=== PATIENT | female | born 1980 | race Caucasian/White ===

== ENCOUNTER → 2019-08-14 16:25 | Outpatient (BNVA) | payer MEDICAID, SELFPAY | PROVIDERS: Family Provider Internal Medicine; PCP Internal Medicine; Visit Provider Obstetrics & Gynecology | DX: O02.1 Missed abortion (principal) | CPT/HCPCS: 85025 ==

== ENCOUNTER 2019-08-21 06:47 | Day surgery (SDC) | payer MEDICAID, SELFPAY ==
[2019-08-20 10:37] VITALS: BMI 32.4
--- NOTE | 2019-08-21 06:53 | P.HPUD_ITS ---
Surgery/Procedure H&P Update DATE OF PROCEDURE: August 21, 2019 DATE H&P PERFORMED: 08/19/19 H&P UPDATE INFORMATION: I have reviewed H&P completed within last 30 days, I have examined patient prior to procedure, No changes to prior documentation and H&P is in [facility] on date indicated PREOP DIAGNOSIS: Missed PRIMARY INDICATION FOR PROCEDURE: missed PLANNED PROCEDURE: Operation Date: 08/21/19 08:15 Proposed Procedures p Dilation And Curettage (D&C)(Not Applicable) - Gil Butterfield MD
[2019-08-21 07:00] VITALS: BP 108/73; PULSE 90; RESP 18; TEMP 36.3; O2SAT 99
[2019-08-21] MEDS: sodium chloride 0.9% 1,000 ML 30 ML IV (07:23)
--- NOTE | 2019-08-21 07:32 | ANES.PREANE2 ---
Pre-Anesthetic Assessment Pre-Anesthetic Assessment: Height/Weight: Height 1.68 m Weight 91.172 kg Temp Pulse Resp BP Pulse Ox 97.3 F L 90 18 108/73 99 08/21/19 07:00 08/21/19 07:00 08/21/19 07:00 08/21/19 07:00 08/21/19 07:00 Preop Diagnosis: Missed Proposed Procedure: Operation Date: 08/21/19 08:15 Proposed Procedures p Dilation And Curettage (D&C)(Not Applicable) - Gil Butterfield MD Last intake: Intake Last Liquid Date 08/20/19 Last Liquid Time 23:00 Last Solid Date 08/20/19 Last Solid Time 23:00 Social: Social History: No alcohol and No tobacco Exam: Pre-Anes Outpt Exam: alert, oriented x 3, clear to auscultation bilaterally and regular rate & rhythm Airway: Submandibular: WNL Cervical ROM: WNL MP: 1 Dentition: Other (teeth ok) History/ROS: No significant history except as noted Pulmonary: Pulmonary: None reported CV/HEM: CV/HEM: None reported : : None reported Hepatic: Hepatic: None reported GI: GI: None reported Metabolic: Metabolic: None reported Musc/skel: Musc/skel: None reported Neuropsych: Neuropsych: None reported Anesthetic Plan: ASA status: 2 Anesthesia: Anesthesia Evaluation and General Risk of > 500 ml blood loss (7ml/kg in children): No Meds/Allergies Current Medications: Current Medications Generic Name Dose Route Start Last Admin Trade Name Freq PRN Reason Stop Dose Admin Sodium Chloride 1,000 mls @ 30 ml s/hr 08/21/19 07:00 08/21/19 07:23 Sodium Chloride 0.9% IV 08/22/19 06:59 30 mls/hr .Q24H MENDOZA Administration PFSH Anesthesia PFSH: Medical History Cystic fibrosis carrier Diagnosed with her first . Report has been scanned into expanse. Migraine with aura Started having migraines in her 30s with some visual disturbances. She has never seen a neurologist and just follows up with her primary care provider. She usually takes ibuprofen and headaches resolved. Surgical History History of facial surgery (~2007) cyst on her jaw History of mandibular surgery Maxillomandibular fixation in 1996. Wiring removed the same year with another surgery Family History Family/Other Hypertension Paternal uncle Family history of thyroid problem Paternal aunt Breast cancer Paternal grandmother--dx'd in her 40s Paternal aunt--dx'd in her 40s Father Hyperlipidemia Grandmother Family history of thyroid problem Paternal grandmother Sister Family history of thyroid problem Mother Colon cancer dx'd at 56 years old Denies family history of Ovarian cancer Diabetes Heart disease Uterine cancer Stroke Social History Smoking and tobacco status: never smoked Alcohol intake: never Additional social history: - Tobacco Use: Denies past or current use Drug Use: Denies past or current use Alcohol Use: Used to drink socially; denies any alcohol use since 2013 Work/Study Status: Stay at home mother Data Anesthesia Cardiac Studies: No Data to Display
[2019-08-21 07:43] LABS: Basophils # 0.1 10^3/uL (0.0-0.1); Basophils % 0.9 %; Eosinophils # 0.2 10^3/uL (0.0-0.8); Eosinophils % 4.1 %; Hematocrit 40.1 % (37.0-47.0); Hemoglobin 13.4 g/dL (11.5-15.3); Lymphocytes % 37.4 %; Mean Corpuscular HGB Conc 33.4 g/dL (30.0-36.0); Mean Corpuscular Hemoglobin 29.6 pg (28.0-34.0); Mean Corpuscular Volume 88.7 fL (81-99); Mean Platelet Volume 10.1 fL (7.4-10.4); Monocytes # 0.3 10^3/uL (0.2-0.9); Monocytes % 4.7 %; Neutrophils # 2.8 10^3/uL (1.8-7.7); Neutrophils % 52.7 %; Nucleated Red Blood Cells % 0 %; Platelet Count 220 10^3/cmm (130-400); Red Blood Count 4.52 10^6/uL (4.1-5.3); White Blood Count 5.3 10^3/uL (4.0-10.0)
[2019-08-21] MEDS: miSOPROStol 200 mcg Tablet 600 MCG VAGINAL (09:20)
[2019-08-21 09:33] VITALS: BP 104/71; PULSE 89; RESP 16; TEMP 36.3; O2SAT 100
--- NOTE | 2019-08-21 09:34 | P.OP_ITS ---
Operative Report Date of procedure: August 21, 2019 OPERATIVE REPORT Date of surgery: 01/21/2020 Date of dictation: 01/21/2020 Preoperative diagnosis: 39-year-old 4 para 3-0-0-3, missed at 8 weeks. Postoperative diagnosis/findings: 8 to 10-week size retroverted uterus, no adnexal masses, grade 2-3 cystocele, grade 2-3 uterine prolapse, no rectocele. Procedure done: Dilation and suction curettage Specimens removed/disposition of specimens: Products of conception Surgeon: Dr. Gil Sanchez bankruptcy legal assistant: Ayala Anesthesia: General endotracheal tube anesthesia Estimated blood loss: 400 ml Intravenous fluids: 700 mL of LR Urine output: 200 mL of clear urine via red rubber catheter Medications: As per anesthesia records, 600 mcg of Cytotec and 20 units of Pitocin Complications: None, patient was extubated and taken to the recovery room in stable condition PROCEDURE: After consents were signed , the patient was taken to the operating room where she was placed under general endotracheal tube anesthesia without any difficulty. She was placed in dorsal lithotomy position and exam under anesthesia showed a 8 to 10-week size retroverted uterus without adnexal masses. She was then prepped and draped in the usual sterile fashion. Weighted speculum and lateral wall retractors were used to visualize the cervix and the anterior lip of cervix was grasped with a tenaculum. The cervix was easily dilated without any difficulty to 20 John-Roman dilator. Once this was done 9# rigid suction curette was placed into the uterus without difficulty and advanced to the fundus. The curette was attached to suction suction curettage was performed, gritty sensation was noted on all 4 conway of the uterus. The suction curet was removed and curettage was repeated with a sharp curet. All the products obtained were sent to pathology labeled as products of conception. After this was done bimanual exam showed an 8 week size uterus. As there was still active bleeding from the cervix she was given Pitocin IV and 600 mcg of Cytotec per rectum. Bimanual massage was continued and the uterus was noted to form done and was7- 8weeks in size. Bleeding was noted to be minimal. Tenaculum was removed from the cervix and no active bleeding tenaculum site. All instruments were removed from the vagina. The patient was extubated without difficulty and taken to the recovery room in a stable condition. FOLLOW UP: Follow-up in 2 weeks and 6 weeks with surgeon MEDICATION ON DISCHARGE: Colace 100 mg by mouth every 12 hours when necessary constipation, 30 tablets, no refills Ibuprofen 800 mg by mouth every 8 hours when necessary pain, 60 tablets, no refills. Cytotec 200 mcg every 6 hours - 5 tablets. Continue other home medication[default value] DISPOSITION: Home in a stable condition Pre-op Diagnosis: Missed
[2019-08-21 09:38] VITALS: PULSE 90; RESP 16; O2SAT 100
[2019-08-21 09:43] VITALS: PULSE 87; RESP 14; TEMP 36.4; O2SAT 100
[2019-08-21 10:52] VITALS: BP 105/63; PULSE 82; RESP 18; O2SAT 100
== END 2019-08-21 11:00 | disposition home or self-care (01) ==
PROVIDERS: Visit Provider Obstetrics & Gynecology
PROC: (CPT 58120; principal; 2019-08-21 08:15)
DX: O02.1 Missed abortion (principal); Z3A.08 8 weeks gestation of pregnancy; O09.521 Supervision of elderly multigravida, first trimester
CPT/HCPCS: 59820; 12345; 36415; 84702; 85025; 86850; 86900; 88305; J0330; J1100; J2001; J2405; J2590; J2704; J3010; J3490; J7030

== ENCOUNTER → 2019-10-01 15:35 | Outpatient (BNVA) | payer SELFPAY | PROVIDERS: Visit Provider Obstetrics & Gynecology | DX: Z12.4 Encounter for screening for malignant neoplasm of cervix (principal) | CPT/HCPCS: 88175 ==

== ENCOUNTER → 2019-11-13 09:37 | Outpatient (BNVA) | payer MEDICAID, SELFPAY | PROVIDERS: Visit Provider Obstetrics & Gynecology | DX: Z32.01 Encounter for pregnancy test, result positive (principal) | CPT/HCPCS: 81025 ==

== ENCOUNTER → 2019-12-22 14:37 | Outpatient (BNVA) | payer MEDICAID, SELFPAY | PROVIDERS: Visit Provider Obstetrics & Gynecology | DX: Z34.81 Encounter for supervision of other normal pregnancy, first trimester (principal) | CPT/HCPCS: 80053; 80307; 82950; 84315; 85027; 86592; 86762; 86803; 86850; 86900; 87340; 87491; 87591 ==

== ENCOUNTER → 2020-04-14 10:38 | Outpatient (BNVA) | payer MEDICAID, SELFPAY | PROVIDERS: Visit Provider Obstetrics & Gynecology | DX: Z34.81 Encounter for supervision of other normal pregnancy, first trimester (principal) | CPT/HCPCS: 82950; 84315; 85025 ==

== ENCOUNTER → 2020-06-08 11:12 | Outpatient (BNVA) | payer MEDICAID, SELFPAY | PROVIDERS: Visit Provider Obstetrics & Gynecology | DX: Z34.81 Encounter for supervision of other normal pregnancy, first trimester (principal) | CPT/HCPCS: 84315; 87081 ==

== ENCOUNTER → 2020-06-24 09:58 | Outpatient (BNVA) | payer MEDICAID, SELFPAY | PROVIDERS: Visit Provider Obstetrics & Gynecology | DX: Z34.81 Encounter for supervision of other normal pregnancy, first trimester (principal); Z20.822 Contact with and (suspected) exposure to COVID-19 | CPT/HCPCS: 87635 ==

== ENCOUNTER 2020-06-28 12:54 | Inpatient (IN) | payer MEDICAID, SELFPAY ==
[2020-06-28] VITALS (33 sets, daily range): BP systolic 115–144; BP diastolic 53–77; PULSE 60–148; RESP 16; TEMP 35.9–36.8; BMI 37.9
[2020-06-28 06:47] LABS: Basophils % 0.5 %; Eosinophils # 0.1 10^3/uL (0.0-0.8); Eosinophils % 1.2 %; Hematocrit 38.1 % (37.0-47.0); Lymphocytes # 2.3 10^3/uL (0.8-4.8); Lymphocytes % 28.1 %; Mean Corpuscular HGB Conc 34.1 g/dL (30.0-36.0); Mean Corpuscular Hemoglobin 31.1 pg (28.0-34.0); Mean Corpuscular Volume 91.1 fL (81-99); Mean Platelet Volume 10.4 fL (7.4-10.4); Monocytes # 0.5 10^3/uL (0.2-0.9); Neutrophils # 5.32 10^3/uL (1.8-7.7); Neutrophils % 63.7 %; Nucleated Red Blood Cells % 0 %; Platelet Count 174 10^3/cmm (130-400); Red Blood Count 4.18 10^6/uL (4.1-5.3); Red Cell Distribution Width 13.9 % (12.1-15.1); White Blood Count 8.3 10^3/uL (4.0-10.0)
[2020-06-28] MEDS: lactated ringers 1,000 ML 125 ML IV (06:48)
[2020-06-28] MEDS: oxytocin 30 UNIT/500 ML BAG IV (07:15)
[2020-06-28] MEDS: dextrose 5%-lactated ringers 1,000 ML 125 ML IV (11:44)
[2020-06-28] MEDS: lidocaine 2% INJ 20 mL INJECTION (12:10)
--- NOTE | 2020-06-28 12:35 | PM.DELIVERY ---
Delivery Note: Date of delivery: June 28, 2020 - PRE-DELIVERY DIAGNOSIS: 40-year-old 5 para 3-0-1-3 at 39 weeks and 4 days gestation GBS negative, Covid negative Elective induction of labor Obesity Advanced maternal age Cystic fibrosis carrier Migraine with aura POST-DELIVERY DIAGNOSIS: Vaginal delivery on 06/28/2020 PROCEDURE: Vaginal delivery on 06/28/2020 ANESTHESIA: 2% lidocaine local anesthesia DELIVERING PHYSICIAN: Gil Sanchez FACOG PRE-DELIVERY COURSE: Ms. Roldan is a 40-year-old 5 para 3-0-1-3 at 39 weeks and 4 days gestation who presented to labor and delivery on 06/28/2020 for elective induction of labor. She denied any problems and was comfortable and had irregular contractions which she did not feel. tracing was category 1 and cervical exam was 450 and -2 station. She was GBS negative and had a negative Covid test and was started on high-dose Pitocin titrated to a maximum of 12 mIU. With this she started to have regular contractions every 2 to 3 minutes and started to grow more uncomfortable. At 10 AM she was noted to be 5 to 6 cm 70% and -2 station. Artificial rupture of membranes was performed at 11:25 AM with meconium fluid. Manager Home on-call Dr. Winters was notified and aware. At this time she was noted to be 7 to 8 cm 70% and -2 station. She progressed rapidly after this and was fully dilated at 11:57 AM and set up in lithotomy ready to push. tracing was category 1 thus far. DELIVERY NOTE: She was set up in lithotomy position and was pushing effectively. She was noted to be +3 station and continued pushing well. The head delivered in KALINA position, nuchal cord x1 was present and was reduced after delivery of the head without any difficulty. The shoulders and rest of the body followed with her next push. The baby's mouth and nose were suctioned and the baby was placed on the mother's belly. Once cord pulsations stopped the cord was clamped and cut and the baby then taken to the warmer by the nurse. The placenta delivered spontaneously intact with membranes and was discarded. The fundus was noted to be firm and well contracted however the lower uterine segment was boggy despite massage and passed clots and as a result 400 mcg of Cytotec were placed per rectum after which tone improved.. The vagina and cervix were inspected and no cervical or sulcal lacerations were noted. The perineum was noted to be intact except for a first-degree vaginal tear near the urethra which was repaired in a [id number] fashion with anesthesia after injecting the area with lidocaine and obtaining anesthesia. Baby Silvano gaines born at 12:03 PM on 06/28/2020 with 7/9, weighing 9 pounds 1 ounce, 4115 g,, 21 inches long. Placenta was delivered spontaneously intact with membranes at 12:07 PM. Cotyledons were intact , centrally inserted umbilical cord with 3 vessels noted. Estimated blood loss 250 mL. Complications-none, both baby and mother were left to recover in a stable condition. This documentation was created by [employer] airconditioning engineer software (known for inherent airconditioning engineer error). Every effort was made to assure accuracy of airconditioning engineer. Any obvious errors or omissions should be clarified with the author of the document. Coding Level of Care Code Acute Film Color Tester for g Fwd History History History 5 Term 4 Miscarriages/Ectopic 1 0 Living Children 4 Other History: - X 4 SAB X 1, D&C done. 1--->[08/06/2013]Male--- Álvaro, 8lbs 3oz, 39 6/7 weeks gestation, 6 hours of labor. Anesthesia: None. Vaginal delivery. Delivered at [facility] in [place], [place]. 2--->[06/04/2015]Male--John, 8 lbs 14 ozs, 40 weeks gestation. No anesthesia. Vaginal delivery. Delivered by Dr James Ayala at [facility] in [place], [place]. No complications. 3--->[10/17/2017]Male--Deshler, 9lbs 2 oz, 40 weeks gestation. No anesthesia. Vaginal delivery by Dr. Ayala. No complications. CF carrier. 4---> 08/21/2019----missed at 8 weeks-[place] [facility] [place]. 5---> 06/28/2020---male, Silvano, 9 pounds 1 ounce at 39 weeks and 4 days-elective induction, no anesthesia, vaginal delivery [place]. Sanchez [place] [facility] [place] No complications, thin neck, intact [id number]-[id number] periurethral tear.
[2020-06-28] MEDS: miSOPROStol 200 mcg Tablet 400 MCG XX (12:39)
[2020-06-28] MEDS: ibuprofen 800 mg tablet PO ×2 (17:02→21:25)
[2020-06-28] MEDS: docusate sodium 100 mg Capsule PO (17:02)
[2020-06-29 01:02] LABS: Hematocrit 34.7 % (37.0-47.0); Hemoglobin 11.9 g/dL (11.5-15.3); Mean Corpuscular HGB Conc 34.3 g/dL (30.0-36.0); Mean Corpuscular Hemoglobin 31.2 pg (28.0-34.0); Mean Corpuscular Volume 90.8 fL (81-99); Mean Platelet Volume 10.8 fL (7.4-10.4); Platelet Count 159 10^3/cmm (130-400); Red Blood Count 3.82 10^6/uL (4.1-5.3); Red Cell Distribution Width 13.9 % (12.1-15.1); White Blood Count 10.7 10^3/uL (4.0-10.0)
[2020-06-29 01:55] VITALS: BP 120/60; PULSE 73; TEMP 36.4
[2020-06-29 01:57] VITALS: RESP 14
[2020-06-29 05:55] VITALS: BP 111/54; PULSE 74
[2020-06-29] MEDS: HYDROcodone-acetaminophen 5-325 mg Tablet PO (06:13)
--- NOTE | 2020-06-29 07:06 | PM.OBGYDC ---
Discharge Providers SIGNAL OPERATOR TECHNICAL Date of Admission: 06/28/20 12:54 Date of Discharge: 06/29/20 Attending Provider at Admission: Gil Butterfield MD Attending Provider at Discharge: Gil Butterfield MD June 29, 2020 PRE-DELIVERY DIAGNOSIS: 40-year-old 5 para 3-0-1-3 at 39 weeks and 4 days gestation GBS negative, Covid negative Elective induction of labor Obesity Advanced maternal age Cystic fibrosis carrier Migraine with aura POST-DELIVERY DIAGNOSIS: Vaginal delivery on 06/28/2020 PROCEDURE: Vaginal delivery on 06/28/2020 ANESTHESIA: 2% lidocaine local anesthesia DELIVERING PHYSICIAN: Gil Sanchez FACOG PRE-DELIVERY COURSE: Ms. Roldan is a 40-year-old 5 para 3-0-1-3 at 39 weeks and 4 days gestation who presented to labor and delivery on 06/28/2020 for elective induction of labor. She denied any problems and was comfortable and had irregular contractions which she did not feel. tracing was category 1 and cervical exam was 450 and -2 station. She was GBS negative and had a negative Covid test and was started on high-dose Pitocin titrated to a maximum of 12 mIU. With this she started to have regular contractions every 2 to 3 minutes and started to grow more uncomfortable. At 10 AM she was noted to be 5 to 6 cm 70% and -2 station. Artificial rupture of membranes was performed at 11:25 AM with meconium fluid. Hostel Parent on-call Dr. Winters was notified and aware. At this time she was noted to be 7 to 8 cm 70% and -2 station. She progressed rapidly after this and was fully dilated at 11:57 AM and set up in lithotomy ready to push. tracing was category 1 thus far. DELIVERY NOTE: She was set up in lithotomy position and was pushing effectively. She was noted to be +3 station and continued pushing well. The head delivered in KALINA position, nuchal cord x1 was present and was reduced after delivery of the head without any difficulty. The shoulders and rest of the body followed with her next push. The baby's mouth and nose were suctioned and the baby was placed on the mother's belly. Once cord pulsations stopped the cord was clamped and cut and the baby then taken to the warmer by the nurse. The placenta delivered spontaneously intact with membranes and was discarded. The fundus was noted to be firm and well contracted however the lower uterine segment was boggy despite massage and passed clots and as a result 400 mcg of Cytotec were placed per rectum after which tone improved.. The vagina and cervix were inspected and no cervical or sulcal lacerations were noted. The perineum was noted to be intact except for a first-degree vaginal tear near the urethra which was repaired in a [id number] fashion with anesthesia after injecting the area with lidocaine and obtaining anesthesia. Baby boy, Silvano born at 12:03 PM on 06/28/2020 with 7/9, weighing 9 pounds 1 ounce, 4115 g,, 21 inches long. Placenta was delivered spontaneously intact with membranes at 12:07 PM. Cotyledons were intact , centrally inserted umbilical cord with 3 vessels noted. Estimated blood loss 250 mL. Complications-none, both baby and mother were left to recover in a stable condition. HOSPITAL COURSE: She underwent an uncomplicated vaginal delivery on 06/28/2020. She did well on day 0 and was ambulating well, tolerating regular diet, voiding freely, passing flatus. She was breast-feeding without difficulty and bonding well with her son. Circumcision was performed on him on day of life 1 per her request.. Pain was well-controlled with by mouth pain medication. She denied nausea, vomiting, fever, chills, shortness of breath, leg pain. She had moderate vaginal bleeding. On day # 1 she continued to do well with stable vital signs and stable hemoglobin at 11.9. She was discharged home on day 1 in a stable condition, as she desired early discharge. Warning signs for endometritis, mastitis, DVT/PE were reviewed with her. Post delivery activity restrictions were also reviewed with her at all her questions were answered to her satisfaction. Vasectomy is a plan for contraception and she declines any hormonal contraception until vasectomy and 3-month follow-up semen analysis are completed. If she changes her mind she will call me. EXAM AT DISCHARGE: Gen.: No acute distress Heart: S1-S2 heard, regular rate and rhythm Lungs: Clear to auscultation bilaterally Abdomen: Soft, fundus firm below umbilicus Legs: No calf tenderness, trace bilateral pitting pedal edema. CONDITION AT DISCHARGE: Stable This documentation was created by [employer] manager of disaster recovery software (known for inherent manager of disaster recovery error). Every effort was made to assure accuracy of manager of disaster recovery. Any obvious errors or omissions should be clarified with the author of the document. Reason for Visit Reason for Visit: induction Information Peripartum Data: Infant Delivery Method: Vaginal Discharge Data Data Completed and Pending: Labs from last 24 hours 06/29/20 00:30 WBC 10.7 H RBC 3.82 L Hgb 11.9 Hct 34.7 L MCV 90.8 MCH 31.2 MCHC 34.3 RDW 13.9 Plt Count 159 MPV 10.8 H Vitals: Last Vital Signs Temp 97.5 F L 06/29/20 01:55 Pulse 74 06/29/20 05:55 Resp 14 06/29/20 01:57 BP 111/54 06/29/20 05:55 Discharge Plan Discharge Patient Disposition: Home Condition: Stable Prescriptions: New ibuprofen 800 mg tablet 800 mg PO Q8H Qty: 30 RF: 0 docusate sodium 100 mg Capsule 100 mg PO BID PRN (Reason: constipation) Qty: 30 RF: 0 Continued cholecalciferol (vitamin D3) 25 mcg (1,000 unit) capsule 25 mcg PO DAILY RF: 0 prenat.vits,az,tba-ozna-wzkpy Tablet 1 tab PO DAILY RF: 0 Super DHA Gems 500-100-1,000 mg capsule 1 cap PO DAILY RF: 0 famotidine [Pepcid AC] 20 mg tablet 20 mg PO DAILY RF: 0 Discharge Orders: Discharge Order (Routine); Ordered 06/29/20 Ordered By: Gil Butterfield Referrals: Gil Butterfield MD [Physician] - 08/09/20 2:15 pm (6-week visit) Discharge Diet: Regular Patient Instructions: Your Baby (GEN), and the Working Mom (GEN), Expression, Collection and Storage of Breastmilk (GEN), How to Hold and Breastfeed Your Baby (GEN), and Nipple Soreness (GEN), and Plugged Ducts (GEN), OB Discharge Report, OB Food/Drug Interaction Guide, OB Vaginal Deliveries - [facility] Activity Restrictions/Additional Instructions: Pelvic rest for 6 weeks, no heavy lifting for 6 weeks Discharge Attestations SIGNAL OPERATOR TECHNICAL Time Spent in Discharge Care*: greater than 30 min Coding Level of Care Code Acute Testing Consultant for Alda Novoa
[2020-06-29] MEDS: prenatal vitamin Capsule 1 CAP PO (09:00)
[2020-06-29] MEDS: docusate sodium 100 mg Capsule PO (09:00)
[2020-06-29] MEDS: ibuprofen 800 mg tablet PO (09:00)
[2020-06-29 12:42] VITALS: TEMP 35.8
[2020-06-29 12:43] VITALS: BP 133/60; PULSE 83
[2020-06-29 14:22] VITALS: BP 128/76; PULSE 72; RESP 18; TEMP 36.7
== END 2020-06-29 14:30 | disposition home or self-care (01) | DRG 806 ==
LOC: OPOB 12:59 → OBGYN 12:59
PROVIDERS: Admitting Provider Obstetrics & Gynecology; Visit Provider Obstetrics & Gynecology
DX: O77.0 Labor and delivery complicated by meconium in amniotic fluid (principal); O99.834 Other infection carrier state complicating childbirth; Z37.0 Single live birth; Z22.8 Carrier of other infectious diseases; O99.214 Obesity complicating childbirth; O69.2XX0 Labor and delivery complicated by other cord entanglement, with compression, not applicable or unspecified; O70.0 First degree perineal laceration during delivery; Z3A.39 39 weeks gestation of pregnancy; O75.89 Other specified complications of labor and delivery; G43.109 Migraine with aura, not intractable, without status migrainosus
CPT/HCPCS: 36415; 59025; 59409; 85025; 85027; 96365; 96366; 99211

== ENCOUNTER → 2021-01-27 13:40 | Outpatient (BNVA) | payer MEDICAID, SELFPAY | PROVIDERS: Visit Provider Nurse Practitioner Family | DX: Z20.822 Contact with and (suspected) exposure to COVID-19 (principal) | CPT/HCPCS: 87426; 87635 ==

== ENCOUNTER 2021-10-05 09:20 | Outpatient (CLI) | payer MEDICAID, SELFPAY ==
--- NOTE | 2021-10-05 09:30 | US_ITS ---
WS: [id number] EARLY OBSTETRICAL ULTRASOUND (<14 WEEKS). HISTORY: Z34.90 - Encounter for supervision of normal , u... COMPARISON: None available. Single intrauterine gestational sac is identified. Cardiac activity at 167 BPM. Ozone-rump length turner sures 4.9 cm which corresponds to a gestation of 11w5d. Normal-appearing yolk sac and amnion demonstr ated. Moderate-sized subchorionic hemorrhage. Hemorrhage measures 3.0 x 3.9 x 3.0 cm along the anteri or RIGHT lateral gestational sac. No free fluid. Small corpus luteal cyst associated with the LEFT ovary. The cyst measures 1.6 x 1.5 x 1.2 cm. US/US OB <= 14 weeks fetus [id number] IMPRESSION: 1. Single intrauterine gestation of 11 weeks 3 days with an EDC of 04/23/2022. 2. Moderate-sized subchorionic hemorrhage measures 3.0 x 3.9 x 3.0 cm. 3. Normal cardiac activity.
== END 2021-10-05 09:21 | disposition home or self-care (01) ==
LOC: RAD 09:22
PROVIDERS: Visit Provider Obstetrics & Gynecology
DX: Z34.90 Encounter for supervision of normal pregnancy, unspecified, unspecified trimester (principal)
CPT/HCPCS: 76801

== ENCOUNTER → 2021-10-12 10:30 | Outpatient (BNVA) | payer MEDICAID, SELFPAY | PROVIDERS: Visit Provider Obstetrics & Gynecology | DX: Z34.90 Encounter for supervision of normal pregnancy, unspecified, unspecified trimester (principal) | CPT/HCPCS: 80307; 84315; 85025; 86592; 86762; 86850; 86900; 87086; 87340; 87491; 87591; 87624; 87661 ==

== ENCOUNTER → 2022-01-30 16:14 | Outpatient (BNVA) | payer MEDICAID, SELFPAY | PROVIDERS: Visit Provider Obstetrics & Gynecology | DX: O09.899 Supervision of other high risk pregnancies, unspecified trimester (principal); Z3A.00 Weeks of gestation of pregnancy not specified | CPT/HCPCS: 82950; 84315; 85025 ==

== ENCOUNTER 2022-02-23 20:03 | Outpatient (CLI) | payer MEDICAID, SELFPAY ==
[2022-02-23] VITALS (14 sets, daily range): BP systolic 105–120; BP diastolic 56–68; PULSE 64–86; RESP 16; TEMP 36; BMI 37.5
[2022-02-23 20:55] LABS: Nitrazine Paper, PH Negative
== END 2022-02-23 23:30 | disposition home or self-care (01) ==
LOC: OPOB 20:04 → OBGYN 20:06
PROVIDERS: Visit Provider Obstetrics & Gynecology
DX: O26.899 Other specified pregnancy related conditions, unspecified trimester (principal); Z3A.00 Weeks of gestation of pregnancy not specified; Z12.31 Encounter for screening mammogram for malignant neoplasm of breast
CPT/HCPCS: 59025; 83986; 99211

== ENCOUNTER → 2022-03-01 13:00 | Outpatient (BNVA) | payer MEDICAID, SELFPAY | PROVIDERS: Visit Provider Obstetrics & Gynecology | DX: Z34.90 Encounter for supervision of normal pregnancy, unspecified, unspecified trimester (principal) | CPT/HCPCS: 84315; 87086 ==

== ENCOUNTER → 2022-03-13 10:00 | Outpatient (BNVA) | payer MEDICAID, SELFPAY | PROVIDERS: Visit Provider Obstetrics & Gynecology | DX: O24.419 Gestational diabetes mellitus in pregnancy, unspecified control (principal); O09.529 Supervision of elderly multigravida, unspecified trimester; O09.299 Supervision of pregnancy with other poor reproductive or obstetric history, unspecified trimester; Z64.1 Problems related to multiparity; O09.899 Supervision of other high risk pregnancies, unspecified trimester; Z30.9 Encounter for contraceptive management, unspecified; G43.109 Migraine with aura, not intractable, without status migrainosus; Z3A.00 Weeks of gestation of pregnancy not specified | CPT/HCPCS: 81000; 85025; 87086 ==

== ENCOUNTER 2022-03-21 09:00 | Outpatient (CLI) | payer MEDICAID, SELFPAY ==
[2022-03-21 09:00] VITALS: BMI 37.5
--- NOTE | 2022-03-21 09:07 | US_ITS ---
WS: [id number] BIOPHYSICAL PROFILE AMNIOTIC FLUID HISTORY: Gestational DIABETIC COMPARISON: None available. Cardiac activity: 144 bpm. Cervix: closed. Placenta: Anterior, no previa or abruption. Placenta grade: 1 Position: Cephalic. Parameters are as follows: Breathin Movement: 2 Tone: 2 Fluid volume: 2 Amniotic fluid index: 14.9 cm. Deepest vertical pocket 0.0 cm. US/US OB BPP wo NST [id number] IMPRESSION: 1. Biophysical profile score: 8/8. 2. Anterior placenta. 3. Normal cardiac activity. 4. Normal amniotic fluid.
[2022-03-21 09:12] VITALS: BP 116/64; PULSE 84
[2022-03-21 09:32] VITALS: BP 119/54; PULSE 82
[2022-03-21 09:45] VITALS: BP 119/54; PULSE 82
== END 2022-03-21 09:50 | disposition home or self-care (01) ==
LOC: OPOB 09:05 → OBGYN 09:06
PROVIDERS: Absent Provider Obstetrics & Gynecology; Visit Provider Obstetrics & Gynecology
DX: O24.419 Gestational diabetes mellitus in pregnancy, unspecified control (principal); Z3A.00 Weeks of gestation of pregnancy not specified
CPT/HCPCS: 59025; 76819; 99211

== ENCOUNTER → 2022-03-27 13:28 | Outpatient (BNVA) | payer MEDICAID, SELFPAY | PROVIDERS: Visit Provider Obstetrics & Gynecology | DX: O09.899 Supervision of other high risk pregnancies, unspecified trimester (principal); Z3A.00 Weeks of gestation of pregnancy not specified | CPT/HCPCS: 84315; 87081; 87086 ==

== ENCOUNTER 2022-04-19 06:11 | Inpatient (IN) | payer MEDICAID, SELFPAY ==
[2022-04-19] VITALS (32 sets, daily range): BP systolic 100–138; BP diastolic 57–76; PULSE 55–83; RESP 15–17; TEMP 36.8; O2SAT 96–97; BMI 37.8
[2022-04-19 06:58] LABS: Basophils % 0.4 %; Eosinophils # 0.1 10^3/uL (0.0-0.8); Eosinophils % 0.8 %; Hematocrit 37.5 % (37.0-47.0); Hemoglobin 12.9 g/dL (11.5-15.3); Lymphocytes # 2.8 10^3/uL (0.8-4.8); Lymphocytes % 38.7 %; Mean Corpuscular HGB Conc 34.4 g/dL (30.0-36.0); Mean Corpuscular Volume 87.2 fl (81-99); Mean Platelet Volume 10.3 fL (7.4-10.4); Monocytes # 0.4 10^3/uL (0.2-0.9); Monocytes % 5.3 %; Neutrophils # 3.83 10^3/uL (1.8-7.7); Neutrophils % 53.7 %; Nucleated Red Blood Cells % 0 %; Platelet Count 182 10^3/cmm (130-400); Red Cell Distribution Width 14.1 % (12.1-15.1); White Blood Count 7.1 10^3/uL (4.0-10.0)
[2022-04-19] MEDS: oxytocin 30 UNIT/500 ML BAG IV (07:15)
[2022-04-19] MEDS: dextrose 5%-lactated ringers 1,000 ML 125 ML IV (07:15)
--- NOTE | 2022-04-19 08:12 | PM.OPHPUD ---
Labor & Delivery H&P Update Date of Procedure: April 19, 2022 Date H&P Performed: 04/17/22 H&P update information: I have reviewed H&P completed within last 30 days, I have examined patient prior to procedure and Changes to prior documentation as noted here Changes to previous documentation: The patient is being admitted for induction of labor at term. She has advanced cervical dilation (/-). Her is complicated by gestational diabetes, AMA, grand multipara and history of macrosomia in prior . Plan is AROM and expectant management. Admission Diagnosis: Preop diagnosis: iup@ 39 weeks, 3 days Related Problem List Diagnoses (1) Gestational diabetes: (2) AMA (advanced maternal age) multigravida 35+: (3) History of macrosomia in in prior , currently : (4) Grand multipara: (5) Supervision of other high-risk :
--- NOTE | 2022-04-19 09:45 | PM.DELIVERY ---
Delivery Note: Date of delivery: April 19, 2022 Pre-delivery diagnoses: iup@ 39w3d, gestational diabetes, history of macrosomia, AMA, grandmultipara Post-delivery diagnoses: same-delivered Procedure: Delivering Physician: Selam Estimated blood loss (mL): 5 Pre-Delivery Course: The patient was admitted for induction of labor and advanced cervical dilation. She had AROM and fairly quickly had complete cervical dilation. She began to push Delivery: The patient had complete cervical dilation and began to push. The head delivered in the KALINA position over an intact perineum under no anesthesia. A single nuchal cord was reduced at the perineum. The nose and mouth were bulb suctioned. The shoulders and body delivered atraumatically. The baby was placed onto the mother's abdomen. The cord was clamped and cut. The placenta delivered spontaneously. It was inspected and found to be intact. Inspection of the perineum revealed no lacerations and no repair was required. Estimated blood loss 5 mL. Apgars on baby were 8 at 1 minute and 9 at 5 minutes. Weight of baby is 8 pounds 11 ounces. Mother and baby were stable post delivery. History History History 6 Term 4 0 Miscarriages/Ectopic 1 Living Children 4 Coding Level of Care Code Acute Industrial Machine Assembler for Chg Bright
[2022-04-19] MEDS: HYDROcodone-acetaminophen 5-325 mg Tablet PO (10:17)
[2022-04-19] MEDS: lanolin oint 7 gm 1 APPLIC TOPICAL (10:19)
[2022-04-19] MEDS: benzocaine-menthol 78 gm Canister 1 SPRAY TOPICAL (10:19)
--- NOTE | 2022-04-19 11:50 | PC.NURSE ---
pt up to bathroom without difficulty. monserrat care by pt. pad and gown changed. pt back to bed, sitting up to eat lunch.
[2022-04-19] MEDS: ibuprofen 800 mg tablet PO ×2 (14:30→20:48)
[2022-04-19] MEDS: acetaminophen 325 mg Tablet 650 MG PO (14:34)
[2022-04-19] MEDS: hyDROXYzine 25 mg Capsule 50 MG PO (14:35)
--- NOTE | 2022-04-19 16:32 | PC.NURSE ---
pt ambulated to OB8. oriented to room and call light. proud parent pack and feeding log discussed. fresh ice water given.
[2022-04-19] MEDS: docusate sodium 100 mg Capsule PO (17:40)
[2022-04-19 22:38] LABS: Hematocrit 33.3 % (37.0-47.0); Hemoglobin 11.4 g/dL (11.5-15.3); Mean Corpuscular HGB Conc 34.2 g/dL (30.0-36.0); Mean Corpuscular Hemoglobin 30.6 pg (28.0-34.0); Mean Corpuscular Volume 89.5 fl (81-99); Mean Platelet Volume 10.5 fL (7.4-10.4); Platelet Count 144 10^3/cmm (130-400); Red Blood Count 3.72 10^6/uL (4.1-5.3); Red Cell Distribution Width 14.1 % (12.1-15.1); White Blood Count 8.2 10^3/uL (4.0-10.0)
[2022-04-20 04:40] VITALS: BP 122/84; PULSE 71; RESP 17; TEMP 36.7; O2SAT 98
--- NOTE | 2022-04-20 08:32 | PM.DCS ---
Discharge Providers Date of Admission: 04/19/22 06:11 Date of Discharge: April 20, 2022 Attending Provider at Admission: Milagros Doss MD Attending Provider at Discharge: Milagros Doss MD Diagnoses at Discharge Discharge Diagnosis (1) Gestational diabetes: Status: Acute (2) AMA (advanced maternal age) multigravida 35+: Status: Acute (3) History of macrosomia in in prior , currently : Status: Acute (4) Grand multipara: Status: Acute (5) Supervision of other high-risk : Status: Acute Reason for Visit Reason for Visit: Induction Hospital Course Hospital Course The patient was admitted for induction at term. She had spontaneous delivery of a term male . She did well and was ready for discharge on day #1 Physical Exam Narrative: The patient is doing well this morning. No concerns. Const: COMMON NORMALS: no acute distress, patient oriented x3, no limitations, healthy appearing, alert and well nourished GENERAL APPEARANCE: cooperative, comfortable, well kempt and well developed ORIENTATION/CONSCIOUSNESS: Yes awake, Yes oriented to person, Yes oriented to place and Yes oriented to time Resp: COMMON NORMALS: normal respiratory effort EFFORT & INSPECTION: Yes able to speak in complete sentences GI: COMMON NORMALS: Soft to palpation and non-tender PALPATION: Yes Soft to palpation Extremity: COMMON NORMALS: no calf tenderness Neuro: COMMON NORMALS: patient oriented x3 SENSORIUM/ORIENTATION: Yes alert, Yes oriented to person, Yes oriented to place and Yes oriented to time Psych: COMMON NORMALS: mental status grossly normal, Normal thought process present, cooperative, normal affect and speech normal APPEARANCE: Yes well kempt SPEECH: Yes normal speech THOUGHT PROCESS: Normal thought process present Discharge Data Studies Completed and Pending Laboratory Results WBC 8.2 10^3/uL (4.0-10.0) 04/19/22 22:15 RBC 3.72 10^6/uL (4.1-5.3) L 04/19/22 22:15 Hgb 11.4 g/dL (11.5-15.3) L 04/19/22 22:15 Hct 33.3 % (37.0-47.0) L 04/19/22 22:15 MCV 89.5 fl (81-99) 04/19/22 22:15 MCH 30.6 pg (28.0-34.0) 04/19/22 22:15 MCHC 34.2 g/dL (30.0-36.0) 04/19/22 22:15 RDW 14.1 % (12.1-15.1) 04/19/22 22:15 Plt Count 144 10^3/cmm (130-400) 04/19/22 22:15 MPV 10.5 fL (7.4-10.4) H 04/19/22 22:15 Neut % (Auto) 53.7 % 04/19/22 06:30 Lymph % (Auto) 38.7 % 04/19/22 06:30 [place] % (Auto) 5.3 % 04/19/22 06:30 Eos % (Auto) 0.8 % 04/19/22 06:30 Baso % (Auto) 0.4 % 04/19/22 06:30 Neut # (Auto) 3.83 10^3/uL (1.8-7.7) 04/19/22 06:30 Lymph # (Auto) 2.8 10^3/uL (0.8-4.8) 04/19/22 06:30 [place] # (Auto) 0.4 10^3/uL (0.2-0.9) 04/19/22 06:30 Eos # (Auto) 0.1 10^3/uL (0.0-0.8) 04/19/22 06:30 Baso # (Auto) 0.0 10^3/uL (0.0-0.1) 04/19/22 06:30 Nucleated RBC % (auto) 0 % 04/19/22 06:30 Nucleated RBCs # 0.0 /100WBC 04/19/22 06:30 Vitals Last Vital Signs Temp 98.1 F 04/20/22 04:40 Pulse 71 04/20/22 04:40 Resp 17 04/20/22 04:40 BP 122/84 04/20/22 04:40 Pulse Ox 98 04/20/22 04:40 O2 Del Method 04/20/22 04:40 Discharge Plan Discharge Patient Disposition: Home Condition: Stable Prescriptions: Continued prenat.vits,az,[id number]-[id number]-[id number] Tablet 1 tab PO DAILY (DME) blood-glucose meter [Blood Glucose Monitoring] Kit See Rx Instructions .Route Qty: 1 0RF Rx Instructions: As directed (DME) OneTouch Ultra Test Strip See Rx Instructions .Route Qty: 100 3RF Rx Instructions: As directed (DME) lancets [Accu-Chek Softclix Lancets] Misc See Rx Instructions .Route Qty: 100 3RF Rx Instructions: As directed Discharge Orders: Discharge Order (Routine); Ordered 04/20/22 Ordered By: Milagros Doss Patient Instructions: Depression (DC), Bleeding (DC), Preeclampsia and Eclampsia After Delivery (GEN), OB Discharge Report, OB Food/Drug Interaction Guide, Opioid Safety, OB Home Care, OB Vaginal Deliveries - [facility] Discharge Attestations Time Spent in Discharge Care*: less than 30 min Quality Metrics Clinical Quality Measures [ No reported AMI, CVA or VTE this stay] Coding Level of Care Code Acute Chg FW DC note Diagnoses Gestational diabetes O24.419 AMA (advanced maternal age) multigravida 35+ O09.529 History of macrosomia in in prior , currently O09.299 Grand multipara Z64.1 Supervision of other high-risk O09.899
[2022-04-20] MEDS: ibuprofen 800 mg tablet PO ×2 (09:38→14:29)
[2022-04-20] MEDS: prenatal vitamin Capsule 1 CAP PO (09:38)
[2022-04-20] MEDS: docusate sodium 100 mg Capsule PO (09:38)
[2022-04-20 09:39] VITALS: BP 115/70; PULSE 61; RESP 16; TEMP 36.9
[2022-04-20 14:30] VITALS: BP 111/71; PULSE 84; RESP 16; TEMP 36.9
[2022-04-20 14:40] VITALS: BP 111/71; PULSE 84; RESP 16; TEMP 36.9
== END 2022-04-20 14:40 | disposition home or self-care (01) | DRG 807 ==
PROVIDERS: Admitting Provider Obstetrics & Gynecology; Visit Provider Obstetrics & Gynecology
DX: O24.429 Gestational diabetes mellitus in childbirth, unspecified control (principal); Z37.0 Single live birth; Z3A.39 39 weeks gestation of pregnancy; Z14.1 Cystic fibrosis carrier
CPT/HCPCS: 36415; 59025; 59409; 85025; 85027; J2590; J7121

== ENCOUNTER → 2023-11-13 10:19 | Outpatient (BNVA) | payer BC, MEDICAID, SELFPAY | PROVIDERS: Visit Provider Nurse Practitioner Women's Health | DX: L60.3 Nail dystrophy (principal) | CPT/HCPCS: 84439; 84443; 84481 ==

== ENCOUNTER 2023-11-30 09:18 | Outpatient (CLI) | payer BC, MEDICAID, SELFPAY ==
--- NOTE | 2023-11-30 09:30 | MM_ITS ---
WS: [email or web address] SCREENING DIGITAL BREAST TOMOSYNTHESIS MAMMOGRAM WITH CAD HISTORY: Z12.39 - Encounter for other screening for malignant neop... COMPARISON: None available. Bilateral CC and MLO with tomosynthesis and synthetic mammography submitted. Computer aided detection analyzed. Breast composition: The breasts are heterogeneously dense, which may obscure small masses. Subtle are a of architectural distortion upper outer quadrant LEFT breast near 10:00 posterior depth. There are additional scattered calcifications within each breast. MM/[place] [id number] IMPRESSION: BI-RADS: 0-Incomplete: Need additional imaging evaluation FOLLOW UP: Need Additional Imaging LEFT breast: Spot compression views (CC and MLO). True ML. Ultrasound to follow if abnormality persists.
== END 2023-11-30 09:19 | disposition home or self-care (01) ==
LOC: RAD 09:18
PROVIDERS: Visit Provider Nurse Practitioner Women's Health
DX: Z12.31 Encounter for screening mammogram for malignant neoplasm of breast (principal); R92.333 Mammographic heterogeneous density, bilateral breasts; R92.1 Mammographic calcification found on diagnostic imaging of breast
CPT/HCPCS: 77063; 77067

== ENCOUNTER → 2023-12-12 08:17 | Outpatient (BNVA) | payer BC, MEDICAID, SELFPAY | DX: Z76.89 Persons encountering health services in other specified circumstances (principal) | CPT/HCPCS: 80053; 80061; 85025 ==

== ENCOUNTER 2023-12-25 13:23 | Outpatient (CLI) | payer BC, MEDICAID, SELFPAY ==
--- NOTE | 2023-12-25 13:30 | MM_ITS ---
WS: [id number] ADDITIONAL VIEWS LEFT MAMMOGRAM with tomosynthesis. LEFT BREAST ULTRASOUND HISTORY: N64.9 - Disorder of breast, unspecified COMPARISON: 11/30/2023 LEFT MAMMOGRAM: Spot compression views and true ML with tomosynthesis and sympathetic mammography. Breast composition: The breasts are heterogeneously dense, which may obscure small masses. Minimally persistent area of architectural distortion in the central LEFT breast may be just above th e nipple line. There are additional calcifications. No mass identified. LEFT BREAST ULTRASOUND 2-D and color Doppler imaging submitted. No mass or shadowing noted in the LEFT breast at 11, 12 01:00. There is a benign lymph node at 2:00, 5 cm from the nipple. MM/MM diag LT tomosynthesis [id number] IMPRESSION: BI-RADS: 2 - Benign FOLLOW UP: 1 Year Follow-up
--- NOTE | 2023-12-25 14:00 | US_ITS ---
WS: [email or web address] ADDITIONAL VIEWS LEFT MAMMOGRAM with tomosynthesis. LEFT BREAST ULTRASOUND HISTORY: N64.9 - Disorder of breast, unspecified COMPARISON: 11/30/2023 LEFT MAMMOGRAM: Spot compression views and true ML with tomosynthesis and sympathetic mammography. Breast composition: The breasts are heterogeneously dense, which may obscure small masses. Minimally persistent area of architectural distortion in the central LEFT breast may be just above th e nipple line. There are additional calcifications. No mass identified. LEFT BREAST ULTRASOUND 2-D and color Doppler imaging submitted. No mass or shadowing noted in the LEFT breast at 11, 12 01:00. There is a benign lymph node at 2:00, 5 cm from the nipple. US/US breast LT limited* [id number] IMPRESSION: BI-RADS: 2 - Benign FOLLOW UP: 1 Year Follow-up
== END 2023-12-25 13:24 | disposition home or self-care (01) ==
LOC: RAD 13:23
PROVIDERS: Visit Provider Nurse Practitioner Women's Health
DX: N64.9 Disorder of breast, unspecified (principal); R92.8 Other abnormal and inconclusive findings on diagnostic imaging of breast; R92.332 Mammographic heterogeneous density, left breast; N63.21 Unspecified lump in the left breast, upper outer quadrant; R92.1 Mammographic calcification found on diagnostic imaging of breast
CPT/HCPCS: 76642; 77061; G0279